=== PATIENT | male | born 1945 | race Caucasian/White ===

== ENCOUNTER 2022-03-04 10:13 | Outpatient (REF) | payer MEDICARE, SELFPAY ==
--- NOTE | 2022-03-04 15:55 | MHC.AU.ANR ---
Adult Audiological Evaluation Date of Visit: 03/04/22 Reason for Appointment: Audiological evaluation to determine if hearing may be contributing to balance or memory problems. Mr. Hill notes that he has been unsteady recently and trips a lot. He also notes that he has been having difficulties with his memory and a hearing evaluation was recommended. He feels that overall he hears well. He notes constant, bilateral tinnitus that will fluctuate in volume. Mr. 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 He also notes that he is overly sensitive to some sounds, such as metal hitting another surface. Does patient feel they have a hearing loss?: No Hearing Handicap Inventory: HHIE SCORE: 0 Based on HHIE score, patient has: No perceived hearing handicap Ear History: Family History of Hearing Loss?: Yes: Father History of Ear Wax Buildup: Both Ears Bothersome Tinnitus/Ringing/Noises in Ears: Both Ears Medical History: Medical History: Dizziness or Unsteadiness, Prostate cancer, tonsillectomy. Had radiation 1-2 months ago on his spine to get rid of a lesion. He notes that he also has a fracture in his spine and has received an IV medication to promote bone health, but he does not remember the name of the drug at this time. Allergies: NKA Medication List: Xantiga, Prednisone, Tylenol, Atorvastatin, Prevagen, CVS sleep aid, CVS allergy, daily men's vitamins, vitamin D Otoscopy: Right Ear: Unremarkable Left Ear: Unremarkable Tympanometry: Tympanometry performed due to: To assess integrity of the middle ear system Right Ear: Normal Middle Ear System (Type A) Left Ear: Normal Middle Ear System (Type A) Hearing Evaluation: Transducer(s) Used: Insert Earphones, Bone Conduction Method: Conventional Audiometry Stimuli Used: Pure Tones Right Ear: Description of Hearing: Normal hearing from 250-2000 Hz, steeply sloping to a mild to moderately-severe sensorineural hearing loss 7580-4183 Hz. Left Ear: Description of Hearing: Normal hearing from 250-2000 Hz, steeply sloping to a moderate to severe sensorineural hearing loss 5505-8991 Hz. Speech Recognition Threshold (SRT): Method Used: Monitored Live Voice Stimuli Used: Spondee Words Right Ear: 10 dBHL Left Ear: 5 dBHL Word Discrimination: Method: Recorded Lists Word Lists Used: NU-6 Right Ear: 96% at 55 dBHL Left Ear: 100% at 55 dBHL Interpretation of Results: Mild to moderately-severe/severe high-frequency sensorineural hearing loss bilaterally. This pattern of hearing loss is consistent with significant noise exposure. There aren't any indications in the audiogram of a vestibular problem, though it cannot be ruled out without a vestibular work-up (typically offered at ENT offices). Untreated hearing loss can contribute to cognitive decline. Mr. Hill may benefit from hearing aid use binaurally. Recommendations: Mr. Hill may benefit from further work-up with ENT if balance concerns continue and/or a neurologist if memory concerns continue. Mr. Hill may also benefit from binaural hearing aid use. Discussed hearing aids briefly and recommended he contact his health insurance company to determine if he has any hearing aid coverage. He was welcomed to further discuss hearing aids if he chooses to pursue them through our clinic. Audiological re-evaluation recommended in one year, or sooner if changes are noted. Diagnosis: Primary Diagnosis: H90.3 Bilateral Sensorineural Hearing Loss Secondary Diagnosis: H93.13 Tinnitus, Bilateral Services Performed: Services Performed: Comprehensive Audiological Evaluation (CPT 08297) Tympanometry (CPT 88847) Signature: Provider: Cecy Bailey, CCC-A
== END 2022-03-04 10:14 | disposition home or self-care (01) ==
LOC: HO.SH 10:13
PROVIDERS: Visit Provider Physician Assistant
DX: H90.3 Sensorineural hearing loss, bilateral (principal); H93.13 Tinnitus, bilateral
CPT/HCPCS: 92557; 92567